=== PATIENT | male | born 1945 | race Caucasian/White ===

== ENCOUNTER 2022-10-04 06:19 | Inpatient (IN) | payer OTHER, MEDICAID ==
[~2022-10-04] VITALS: Ht 172.7 cm; Wt 84.6 kg
[2022-10-04 09:56] LABS: HEMATOCRIT. 38.5 % (42.0-52.0); HEMOGLOBIN. 13.2 g/dL (14.0-18.0); MEAN CORPUSCULAR HEMOGLOBIN 31.8 pg (28.0-32.0); MEAN CORPUSCULAR VOLUME 92.8 fL (80.0-94.0); MEAN PLATELET VOLUME 11.8 fl (7.4-10.4); PLATELET 95 x1000/uL (130-400); RED BLOOD CELL COUNT 4.15 mill/uL (4.7-6.1)
[2022-10-04 10:01] LABS: CHLORIDE 104 mEq/L (98-107)
[2022-10-04 10:28] LABS: PLATELET ESTIMATE DECREASED
[2022-10-04] MEDS ORDERED: AZITHROMYCIN 500MG/250ML 250 ML IV NR (11:30)
[2022-10-04] MEDS ORDERED: CEFTRIAXONE 1 G PREMIX 50 ML IV NR (11:30)
[2022-10-04] MEDS ORDERED: SODIUM CHLORIDE 0.9% 1,000 ML IV NR ×2 (11:30→14:45)
[2022-10-04 12:55] LABS: CLARITY URINE TURBID (CLEAR); COLOR URINE RED (YELLOW); KETONES URINE TRACE (NEGATIVE); LEUKOCYTE ESTERASE URINE 2+ (NEGATIVE); NITRITE URINE NEGATIVE (NEGATIVE); OCCULT BLOOD URINE 3+ (NEGATIVE); PH URINE 6.5 (4.5-8.0); PROTEIN URINE 2+ (NEGATIVE); SPECIFIC GRAVITY URINE 1.019 (1.005-1.030)
[2022-10-04] MEDS ORDERED: SODIUM CHLORIDE 0.9% 1,000 ML IV ONE ×2 (14:45→18:30)
[2022-10-04] MEDS ORDERED: IPRATROPIUM/ALBUTEROL 0.5-3(2.5)MG/3ML NEB HHN PRN (15:00)
[2022-10-04] MEDS ORDERED: MAGNESIUM/ALUMINUM HYDROXIDE/SIMETHICONE 30ML UDC PO PRN (15:00)
[2022-10-04] MEDS ORDERED: CEFTRIAXONE 1 G PREMIX 50 ML IV SCH (15:00)
[2022-10-04] MEDS ORDERED: ACETAMINOPHEN 325MG TABLET PO PRN (15:00)
[2022-10-04] MEDS ORDERED: DOCUSATE SODIUM 100MG CAPSULE PO PRN (15:00)
[2022-10-04] MEDS ORDERED: HYDROCODONE/ACETAMINOPHEN 5/325MG TABLET PO PRN (15:00)
[2022-10-04] MEDS ORDERED: CLONIDINE 0.1MG TABLET PO PRN (15:00)
[2022-10-04] MEDS ORDERED: ONDANSETRON HCL 4MG/2ML INJ IV PRN (15:00)
[2022-10-04] MEDS ORDERED: GUAIFENESIN 200MG/10ML SUGAR FREE UDC PO PRN (15:00)
[2022-10-04] MEDS ORDERED: NALOXONE HCL 0.4MG/ML VIAL IV PRN (15:15)
[2022-10-04] MEDS: ENOXAPARIN 30MG/0.3ML SYR SUBCUT SCH (18:16)
[2022-10-04] MEDS ORDERED: POTASSIUM CHLORIDE 10MEQ TABLET SR PO NR (20:30)
[2022-10-05] VITALS (7 sets, daily range): BP systolic 98–122; BP diastolic 52–76
[2022-10-05] MEDS: ACETAMINOPHEN 325MG TABLET PO PRN ×2 (03:04→20:10)
[2022-10-05 05:34] LABS: HEMATOCRIT. 35.9 % (42.0-52.0); HEMOGLOBIN. 12.1 g/dL (14.0-18.0); MEAN CORPUSCULAR HEMOGLOBIN 31.7 pg (28.0-32.0); MEAN CORPUSCULAR VOLUME 93.7 fL (80.0-94.0); MEAN PLATELET VOLUME 10.8 fl (7.4-10.4); PLATELET 62 x1000/uL (130-400); RED BLOOD CELL COUNT 3.83 mill/uL (4.7-6.1); RED CELL DISTRIBUTION WIDTH 13.3 % (11.6-14.6)
[2022-10-05 05:52] LABS: CHLORIDE 111 mEq/L (98-107)
[2022-10-05 06:12] LABS: HDL CHOLESTEROL 39 mg/dL (40-59); LDL CHOLESTEROL 20 mg/dL (5-100); T4 FREE 1.14 ng/dL (0.76-1.46); TOTAL IRON BINDING CAPACITY 226 ug/dL (250-450)
[2022-10-05 06:39] LABS: VITAMIN B12 SERUM 540 pg/mL (211-911)
[2022-10-05] MEDS: ENOXAPARIN 30MG/0.3ML SYR SUBCUT SCH (06:50)
[2022-10-05] MEDS: FAMOTIDINE 20MG/2ML VIAL IV SCH ×2 (09:54→20:10)
[2022-10-05 10:52] LABS: PLATELET ESTIMATE MARKEDLY DECREASED
[2022-10-05] MEDS ORDERED: CEFTRIAXONE 1,000 MG in DEXTROSE 5% WATER 50 ML IV SCH (12:00)
[2022-10-05] MEDS ORDERED: AZITHROMYCIN 500 MG in DEXT 5% WATER 250 ML IV SCH (14:00)
[2022-10-05] MEDS ORDERED: ALBUTEROL 6.7GM HFA INHALER ORI PRN (14:45)
[2022-10-05] MEDS ORDERED: VANCOMYCIN 1G PREMIX 200 ML IV SCH (14:45)
[2022-10-05] MEDS ORDERED: VANCOMYCIN 1500MG in DEXTROSE 5% WATER 250ML IV NR (16:00)
[2022-10-05] MEDS: SODIUM CHLORIDE 0.45% 1,000 ML IV SCH ×2 (16:18→21:17)
[2022-10-05 17:28] LABS: FERRITIN 150 ng/mL (22-322)
[2022-10-05] MEDS: PIPERACILLIN/TAZOBACTAM 3.375 G in DEXTROSE 5% WATER 50 ML IV SCH (21:16)
[2022-10-06] VITALS: BP 117/66
[2022-10-06 04:00] VITALS: BP 115/67
[2022-10-06] MEDS: PIPERACILLIN/TAZOBACTAM 3.375 G in DEXTROSE 5% WATER 50 ML IV SCH ×3 (05:18→21:37)
[2022-10-06 07:17] LABS: HEMATOCRIT. 38.9 % (42.0-52.0); HEMOGLOBIN. 13.3 g/dL (14.0-18.0); MEAN CORPUSCULAR HEMOGLOBIN 31.8 pg (28.0-32.0); MEAN CORPUSCULAR VOLUME 92.9 fL (80.0-94.0); MEAN PLATELET VOLUME 10.2 fl (7.4-10.4); PLATELET 51 x1000/uL (130-400); RED BLOOD CELL COUNT 4.19 mill/uL (4.7-6.1); RED CELL DISTRIBUTION WIDTH 13.3 % (11.6-14.6)
[2022-10-06 08:00] VITALS: BP 117/72
[2022-10-06] MEDS: FAMOTIDINE 20MG/2ML VIAL IV SCH (08:53)
[2022-10-06] MEDS ORDERED: VANCOMYCIN 1G PREMIX 200 ML IV SCH (10:00)
[2022-10-06] MEDS: SODIUM CHLORIDE 0.45% 1,000 ML IV SCH ×2 (11:46→21:36)
[2022-10-06 12:00] VITALS: BP 100/58
[2022-10-06 13:08] LABS: CHLORIDE 109 mEq/L (98-107)
[2022-10-06 16:00] VITALS: BP 105/60
[2022-10-06 20:00] VITALS: BP 106/68
[2022-10-06] MEDS ORDERED: FAMOTIDINE 20MG TABLET PO SCH (21:00)
[2022-10-06] MEDS ORDERED: CEFTRIAXONE 2 G PREMIX 50 ML IV SCH (22:45)
[2022-10-07 10:41] LABS: PLATELET ESTIMATE MARKEDLY DECREASED
== END 2022-10-06 22:20 | disposition short-term general hospital (02) | DRG 871 ==
LOC: ER 06:19 → 8WST 11:47 → EDBEDREQ 11:50 → EDBEDREQTM 11:50 → SUPCPDRO 19:35 → ENRESERV 10-05 00:46 → 7EST 10-05 12:58
PROVIDERS: ADMIT Internal Medicine; ATTEND Internal Medicine
DX: A41.51 Sepsis due to Escherichia coli [E. coli] (principal); G92.8 Other toxic encephalopathy; U07.1 COVID-19; J98.11 Atelectasis; N39.0 Urinary tract infection, site not specified; E11.9 Type 2 diabetes mellitus without complications; D69.6 Thrombocytopenia, unspecified; E87.6 Hypokalemia; I11.9 Hypertensive heart disease without heart failure; I25.10 Atherosclerotic heart disease of native coronary artery without angina pectoris; N40.0 Benign prostatic hyperplasia without lower urinary tract symptoms; E66.9 Obesity, unspecified; E78.5 Hyperlipidemia, unspecified; D50.9 Iron deficiency anemia, unspecified; Z86.73 Personal history of transient ischemic attack (TIA), and cerebral infarction without residual deficits; Z79.899 Other long term (current) drug therapy; Z68.28 Body mass index [BMI] 28.0-28.9, adult
CPT/HCPCS: 36415; 71045; 74176; 80053; 80061; 81003; 82607; 82728; 82746; 83036; 83540; 83550; 83605; 84145; 84439; 84443; 85025; 87077; 87186; 87426; 93005; 93970; 97162; 99291; J0456; J0696; J1650; J2543; J3370; J3490; J7060